=== PATIENT | male | born 2000 | race Two or more races ===

== ENCOUNTER 2024-10-21 05:12 | Emergency (ER) | payer BC, MEDICAID, SELFPAY ==
[2024-10-21 05:12] VITALS: BP 135/83; PULSE 70; RESP 18; TEMP 36.7; O2SAT 100; BMI 37.5
--- NOTE | 2024-10-21 05:29 | EDRME_ITS ---
Rapid Medical Screening Exam [facility] Arrival date/time: 10/21/24 05:12 Chief Complaint: Back Pain/Injury Vital signs: Vital Signs Temperature 98.0 F 10/21/24 05:12 Pulse Rate 70 10/21/24 05:12 Respiratory Rate 18 10/21/24 05:12 Blood Pressure 135/83 H 10/21/24 05:12 Pulse Oximetry (%) 100 10/21/24 05:12 Oxygen Delivery Method Room Air 10/21/24 05:12 E Narrative: Right lower back pain radiating down RLE x3 days. No preceding injury or fall. Pain initiated day after lifting weights.
--- NOTE | 2024-10-21 05:32 | PD.EDBACK ---
ED Back Injury Pain RME/HPI General Chief Complaint: Back Pain/Injury Stated Complaint: LOWER BACK PAIN Time Seen by Provider: 10/21/24 05:31 Source: patient, RN notes reviewed and old records reviewed Arrival date/time: 10/21/24 05:12 Mode of arrival: ambulatory Limitations: no limitations RME / HPI RME / HPI Narrative: 24yom presents to ED for right lower back pain radiating down RLE x3 days. No preceding injury or fall. Back pain initiated day after lifting weights. Patient went to the gym again yesterday and did some back exercises which seem to exacerbate the pain. No LE weakness, numbness/tingling or bowel/bladder incontinence reported. 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 Home Medications ?Medication ?Instructions ?Recorded ?Confirmed loratadine 10 mg tablet 10 mg PO QDAY 03/22/23 03/22/23 Previous Rx's ?Medication ?Instructions ?Recorded diclofenac sodium 1 % topical gel 2 g topical QID #100 grams 03/29/23 (Arthritis Pain (diclofenac)) lidocaine 4 % topical patch 1 patch topical TID PRN pain #10 ea 03/29/23 (Aspercreme (lidocaine)) ibuprofen 600 mg tablet 600 mg PO Q6H PRN pain #30 tabs 10/21/24 lidocaine 5 % topical patch 1 patch topical QDAY PRN pain #15 10/21/24 ea methocarbamol 500 mg tablet 500 mg PO Q8H PRN pain #20 tabs 10/21/24 prednisone 50 mg tablet 50 mg PO QDAY 5 days #5 tabs 10/21/24 Allergies Allergy/AdvReac Type Severity Reaction Status Date / Time No Known Allergies Allergy Verified 10/21/24 05:14 Review of Systems Review of Systems Systems Reviewed: All systems reviewed, normal except as documented Constitutional Constitutional: Denies chills and Denies fever(s) Gastrointestinal Gastrointestinal: Denies abdominal pain, Denies fecal incontinence, Denies nausea and Denies vomiting Genitourinary Genitourinary: Denies urinary incontinence Musculoskeletal Musculoskeletal: Reports back pain, Denies numbness and Denies tingling Neurologic Neurologic: Denies localized weakness, Denies numbness and Denies tingling Past Medical History Past Medical History RESPIRATORY: Positive Asthma GASTROINTESTINAL: Positive Obesity Surgical History OTHER SURGICAL HX: denies pshx Social History SMOKING STATUS: Never smoker SUBSTANCE USE: marijuana ALCOHOL: Never ED Exam General Limitations: Present no limitations General appearance: Present alert, in no apparent distress and obese Head Head exam: Present atraumatic and normocephalic Eye Eye exam: Present normal appearance, PERRL and EOMI ENT ENT exam: Present normal exam and mucous membranes moist Neck Neck exam: Present normal inspection and full ROM Chest Chest inspection: Present normal inspection and symmetric chest wall rise Respiratory Respiratory exam: Present normal lung sounds bilaterally; Absent respiratory distress Cardiovascular Cardiovascular exam: Present regular rate and normal rhythm Abdominal Exam Abdominal exam: Present soft; Absent distention, tenderness, guarding or rebound Extremities Exam Extremities exam: Present normal inspection and full ROM; Absent pedal edema Back Exam Back exam: Present paraspinal tenderness (Right lumbar); Absent vertebral tenderness Neurological Exam Neurological exam: Present alert, oriented X3, CN II-XII intact, normal gait and other (No saddle anesthesia); Absent motor sensory deficit Psychiatric Psychiatric exam: Present normal affect and normal mood Skin Skin exam: Present warm, dry, intact and normal color Course Quality Measures none Orders Category Date Time Status CYCLObenzaPRINE [Flexeril] Med 10/21/24 05:30 Discontinued 10 mg PO X1 ONE Dexamethasone Inj [Decadron Inj] Med 10/21/24 05:30 Discontinued 10 mg IM X1 ONE Ketorolac Inj [Toradol Inj] Med 10/21/24 05:30 Discontinued 30 mg IM X1 ONE Lidocaine 5% Patch Med 10/21/24 05:30 Discontinued 1 patch TOP X1 ONE Vital Signs Vital signs: Vital Signs Temperature 98.0 F 10/21/24 05:12 Pulse Rate 70 10/21/24 05:12 Respiratory Rate 18 10/21/24 05:12 Blood Pressure 135/83 H 10/21/24 05:12 Pulse Oximetry (%) 100 10/21/24 05:12 Oxygen Delivery Method Room Air 10/21/24 05:12 Back Pain / Injury MDM Narrative MDM Narrative:: 24yom presents to ED for right lower back pain radiating down RLE x3 days. No preceding injury or fall. Back pain initiated day after lifting weights. Patient went to the gym again yesterday and did some back exercises which seem to exacerbate the pain. No LE weakness, numbness/tingling or bowel/bladder incontinence reported. 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 Encouraged rest, NSAID, muscle relaxer, ice/heat application prn. Stable for discharge, RTED precautions given. Patient data External records reviewed:: [facility] previous records (admit 03/22/23 for ALESSANDRA) Clinical information provided by:: patient Social determinants that could affect healthcare access:: other (specify) (poor access to healthcare) Patient has the following chronic illnesses:: obesity How is presenting disease/condition affected by chronic disease/condition?: exacerbated by Evaluation data The following diagnostics were reviewed and interpreted by me:: other (specify) (none) Lab and/or radiology exams considered but not ordered:: L-spine xrays: no history of trauma or fall. No midline ttp Interpretation Summary: na Medications / Prescriptions Medications or Prescriptions considered but not ordered:: none Medication administrations:: Medication Administration History Discontinued Medications Cyclobenzaprine HCl (Cyclobenzaprine 5 Mg Tablet) 10 mg PO X1 ONE Stop: 10/21/24 05:31 Last Admin: 10/21/24 06:13 Dose: 10 mg Documented By: DELIA Dexamethasone Sodium Phosphate (Dexamethasone Sod Phos Inj 10 Mg/Ml Vial) 10 mg IM X1 ONE Stop: 10/21/24 05:31 Last Admin: 10/21/24 06:13 Dose: 10 mg Documented By: DELIA Ketorolac Tromethamine (Ketorolac Inj 60 Mg/2 Ml Vial) 30 mg IM X1 ONE Stop: 10/21/24 05:31 Last Admin: 10/21/24 06:12 Dose: 30 mg Documented By: DELIA Lidocaine (Lidocaine 5% 1 Patch) 1 patch TOP X1 ONE Stop: 10/21/24 05:31 Last Admin: 10/21/24 06:13 Dose: 1 patch Documented By: DELIA Above medications administered in ED Consultations Consultation(s) initiated? (list below): No Diagnosis Differential diagnosis back pain/injury: lumbar radiculopathy, sciatica, strain of lumbar region and discitis Most likely diagnosis given after review of the tests above:: Lumbar strain, sciatica Admission Indicated Admission indicated?: not indicated Admission Request Was there a request for admission?: No Disposition Plan Disposition Plan: Discharge Discharge Attestation Discharge Attestation: The patient and all family members were given an opportunity to ask questions and understood the discharge instructions. Discharge instructions specifically effects, indications for sooner follow up or return to the emergency department, and the expected course of current diagnosis. Patient condition: Stable Discharge Plan Plan Patient Disposition: HOME (Self Care) Patient condition on transfer: Stable Prescriptions/Referrals Prescriptions/Med Rec: New ibuprofen 600 mg tablet 600 mg PO Q6H PRN (Reason: pain) Qty: 30 0RF methocarbamol 500 mg tablet 500 mg PO Q8H PRN (Reason: pain) Qty: 20 0RF lidocaine 5 % adhesive patch,medicated 1 patch topical QDAY PRN (Reason: pain) Qty: 15 0RF Rx Instructions: leave on most painful area for up to 12 hrs prednisone 50 mg tablet 50 mg PO QDAY 5 Days Qty: 5 0RF No Action diclofenac sodium [Arthritis Pain (diclofenac)] 1 % gel 2 g topical QID Qty: 100 0RF Rx Instructions: apply to single elbow, wrist or hand; for hand includes palm/fingers/back of hand lidocaine [Aspercreme (lidocaine)] 4 % adhesive patch,medicated 1 patch topical TID PRN (Reason: pain) Qty: 10 0RF loratadine 10 mg tablet 10 mg PO QDAY Problem List Clinical Impression: Low back strain, Right sided sciatica Patient/Caregiver Discharge Instructions Education Materials: ED Back Sprain/Strain, ED Sciatica Print Language: Ukrainian Stand Alone Forms: Orin Award Info., Work/School Release, Patient Portal Info Letter PA/[employer] Supervising Physician PA/[employer] Supervising Physician: Rebekah
[2024-10-21] MEDS: KETOROLAC INJ 60 MG/2 ML VIAL 30 MG IM (06:12)
[2024-10-21] MEDS: LIDOCAINE 5% 1 PATCH TOP (06:13)
[2024-10-21] MEDS: CYCLObenzaPRINE 5 MG TABLET 10 MG PO (06:13)
[2024-10-21] MEDS: DEXAMETHASONE SOD PHOS INJ 10 MG/ML VIAL IM (06:13)
== END 2024-10-21 06:53 | disposition home or self-care (01) ==
PROVIDERS: Emergency Provider Emergency Medicine; PCP Family Medicine
DX: S39.012A Strain of muscle, fascia and tendon of lower back, initial encounter (principal); X50.0XXA Overexertion from strenuous movement or load, initial encounter; Y93.B9 Activity, other involving muscle strengthening exercises; Y92.39 Other specified sports and athletic area as the place of occurrence of the external cause
CPT/HCPCS: 96372; 99283; J1100; J1885; J3490; A9270

== ENCOUNTER → 2025-03-03 | Outpatient (CLI) | payer BC, MEDICAID, SELFPAY ==
--- NOTE | 2025-03-03 | XR_ITS ---
Examination: Bilateral hands, 6 views. Technique: AP, Oblique, Lateral each hand total 6 views Date and time of exam: March 03, 2025 1234 hours INDICATIONS: Carpal tunnel pain hand pain for years. FINDINGS: Mild juxta-articular bone demineralization. No fracture or dislocation involving either hand. No erosive or other significant arthritic change involving either hand IMPRESSION: Mild juxta-articular bone demineralization. No erosive or other significant arthritic change involving either hand
--- NOTE | 2025-03-03 | XR_ITS ---
Examination: Bilateral wrists 6 views TECHNIQUE: AP oblique lateral each wrist total 6 views Date and time: March 03, 2025 1234 hours INDICATIONS: Carpal tunnel wrist pain for years. FINDINGS: Mild osteopenia. No fracture or dislocation involving either wrist. No erosive or other significant arthritic change involving either wrist IMPRESSION: No erosive or other significant arthritic change involving either wrist
== END | disposition home or self-care (01) ==
PROVIDERS: PCP Nurse Practitioner Gerontology; Referring Provider Nurse Practitioner Gerontology; Visit Provider Nurse Practitioner Gerontology
DX: M25.842 Other specified joint disorders, left hand (principal); M25.841 Other specified joint disorders, right hand; M25.832 Other specified joint disorders, left wrist; M25.831 Other specified joint disorders, right wrist
CPT/HCPCS: 73110; 73130